=== PATIENT | female | born 1955 | race Caucasian/White ===

== ENCOUNTER 2020-01-11 01:40 | Emergency (ER) | payer OTHER, SELFPAY ==
[2020-01-11 01:42] VITALS: BP 133/83; PULSE 86; RESP 18; TEMP 36.7; O2SAT 99; BMI 28.3
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
[2020-01-11] MEDS: Ibuprofen 600 MG Tablet PO (02:23)
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
[2020-01-11 02:55] VITALS: BP 126/80; PULSE 86; RESP 16; O2SAT 96
== END 2020-01-11 02:57 | disposition home or self-care (01) ==
PROVIDERS: Emergency Provider Emergency Medicine
DX: S20.219A Contusion of unspecified front wall of thorax, initial encounter (principal); S39.012A Strain of muscle, fascia and tendon of lower back, initial encounter; V59.40XA Driver of pick-up truck or van injured in collision with unspecified motor vehicles in traffic accident, initial encounter; Y93.9 Activity, unspecified; Y92.9 Unspecified place or not applicable; E03.9 Hypothyroidism, unspecified; E78.00 Pure hypercholesterolemia, unspecified; Z79.899 Other long term (current) drug therapy; Z72.0 Tobacco use
CPT/HCPCS: 71046; 99284